=== PATIENT | female | born 1995 | race American Indian/Alaskan Native ===

== ENCOUNTER 2017-09-24 07:09 | Emergency (ER) | payer SELFPAY ==
--- NOTE | 2017-09-24 10:45 | Emergency Department Report ---
ED ENT HPI - General Chief complaint: Sore Throat Stated complaint: SORE THROAT Time Seen by Provider: 09/24/17 10:29 Source: patient Mode of arrival: Ambulatory Limitations: No Limitations - History of Present Illness MD complaint: sore throat -: days(s) ( 3days) Severity: moderate Severity scale (0 -10): 4 - Related Data Allergies Allergy/AdvReac Type Severity Reaction Status Date / Time No Known Allergies Allergy Unverified 09/24/17 07:22 ED Dental HPI - General Chief complaint: Sore Throat Stated complaint: SORE THROAT Time Seen by Provider: 09/24/17 10:29 Source: patient Mode of arrival: Ambulatory Limitations: No Limitations - Related Data Allergies Allergy/AdvReac Type Severity Reaction Status Date / Time No Known Allergies Allergy Unverified 09/24/17 07:22 ED Review of Systems ROS: Stated complaint: SORE THROAT Other details as noted in HPI Comment: All other systems reviewed and negative Constitutional: fever. denies: chills Respiratory: denies: cough, orthopnea, shortness of breath, SOB with exertion Cardiovascular: denies: chest pain, palpitations Gastrointestinal: denies: abdominal pain, nausea ED Past Medical Hx - Past Medical History Previous Medical History?: Yes Additional medical history: hx of heart murmur, p[olycystic ovaries - Surgical History Past Surgical History?: Yes Additional Surgical History: D&C - Social History Smoking Status: Current Every Day Smoker Substance Use Type: Non Opiate Pain ED Physical Exam - General Limitations: No Limitations General appearance: alert, in no apparent distress - Head Head exam: Present: atraumatic, normocephalic - Eye Eye exam: Present: normal appearance - ENT ENT exam: Present: other (pharyngeal erythema and tonsillar exudates present.) - Neck Neck exam: Present: normal inspection, full ROM. Absent: tenderness, meningismus, lymphadenopathy, thyromegaly - Respiratory Respiratory exam: Present: normal lung sounds bilaterally. Absent: respiratory distress, wheezes, rales, rhonchi, stridor, chest wall tenderness, accessory muscle use, decreased breath sounds, prolonged expiratory - Cardiovascular Cardiovascular Exam: Present: regular rate, normal rhythm, normal heart sounds - GI/Abdominal GI/Abdominal exam: Present: soft. Absent: tenderness, guarding, rebound - Extremities Exam Extremities exam: Present: normal inspection, full ROM - Back Exam Back exam: Present: normal inspection, full ROM. Absent: CVA tenderness (R), CVA tenderness (L) - Neurological Exam Neurological exam: Present: alert, oriented X3, CN II-XII intact, normal gait - Skin Skin exam: Present: warm, intact, normal color. Absent: cyanosis, diaphoretic, erythema ED Course Vital Signs 09/24/17 07:22 Temperature 98.5 F Pulse Rate 91 H Respiratory 20 Rate Blood Pressure 135/71 O2 Sat by Pulse 99 Oximetry Critical care attestation.: If time is entered above; I have spent that time in minutes in the direct care of this critically ill patient, excluding procedure time. ED Disposition Clinical Impression: Pharyngitis Disposition: -01 TO HOME OR SELFCARE Is pt being admited?: No Condition: Stable Instructions: Strep Throat (ED), Pharyngitis (ED) Referrals: PRIMARY CARE, [Primary Care Provider] - 3-5 Days
[2017-09-24 11:42] VITALS: BP 130/72
== END 2017-09-24 11:40 | disposition home or self-care (01) ==
LOC: ED 07:09
DX: J02.9 Acute pharyngitis, unspecified (principal); F17.200 Nicotine dependence, unspecified, uncomplicated; E28.2 Polycystic ovarian syndrome
CPT/HCPCS: 87116; 87430; 99282

== ENCOUNTER 2021-04-02 07:52 | Emergency (ER) | payer SELFPAY ==
[2021-04-02 08:14] VITALS: BP 109/71
--- NOTE | 2021-04-02 10:56 | Emergency Department Report ---
ED Female HPI - General Chief complaint: Urogenital-Female Stated complaint: SWOLLEN IN PRIVATE AREA Time Seen by Provider: 04/02/21 10:52 Source: patient Mode of arrival: Ambulatory Limitations: No Limitations - History of Present Illness Initial comments: Patient is a 25-year-old female presents emergency room with complaints of vaginal swelling for a week. she has associated itching and burning. She states that she is concerned she may have a yeast infection but has not tried any treatments. She states that she also noticed a small lesion present. Patient states that she was sexually active a week ago. No diarrhea, abdominal pain, pelvic pain, back pain. PMHx PCOS and states that she has not had a menstrual cycle in 6 years. No allergies to medicine. pt states she is concerned for STDs and would like to be treated. - Related Data Previous Rx's Medication Instructions Recorded Last Taken Type Amoxicillin [Amoxicillin TAB] 875 mg PO BID #20 tablet 09/24/17 Unknown Rx Doxycycline Hyclate [Doxycycline 100 mg PO BID 7 Days #14 tab 04/02/21 Unknown Rx Hyclate TAB] Fluconazole [Diflucan TAB] 150 mg PO QDAY 2 Days #6 tablet 04/02/21 Unknown Rx metroNIDAZOLE [Flagyl] 500 mg PO BID 7 Days #14 tab 04/02/21 Unknown Rx Allergies Allergy/AdvReac Type Severity Reaction Status Date / Time No Known Allergies Allergy Unverified 09/24/17 07:22 ED Review of Systems ROS: Stated complaint: SWOLLEN IN PRIVATE AREA Other details as noted in HPI Comment: All other systems reviewed and negative ED Past Medical Hx - Past Medical History Previous Medical History?: Yes Hx Asthma: Yes Additional medical history: hx of heart murmur, p[olycystic ovaries - Surgical History Past Surgical History?: Yes Additional Surgical History: D&C - Social History Smoking Status: Current Every Day Smoker Substance Use Type: Non Opiate Pain - Medications Home Medications: Home Medications Medication Instructions Recorded Confirmed Last Taken Type Amoxicillin [Amoxicillin TAB] 875 mg PO BID #20 tablet 09/24/17 Unknown Rx Doxycycline Hyclate [Doxycycline 100 mg PO BID 7 Days #14 tab 04/02/21 Unknown Rx Hyclate TAB] Fluconazole [Diflucan TAB] 150 mg PO QDAY 2 Days #6 tablet 04/02/21 Unknown Rx metroNIDAZOLE [Flagyl] 500 mg PO BID 7 Days #14 tab 04/02/21 Unknown Rx ED Physical Exam - General Limitations: No Limitations General appearance: alert, in no apparent distress - Head Head exam: Present: atraumatic, normocephalic - Eye Eye exam: Present: normal appearance - ENT ENT exam: Present: mucous membranes moist - Respiratory Respiratory exam: Present: normal lung sounds bilaterally. Absent: respiratory distress, wheezes, rales, rhonchi, stridor, chest wall tenderness, accessory muscle use, decreased breath sounds, prolonged expiratory - Cardiovascular Cardiovascular Exam: Present: regular rate, normal rhythm, normal heart sounds. Absent: systolic murmur, diastolic murmur, rubs, gallop - GI/Abdominal GI/Abdominal exam: Present: soft, normal bowel sounds. Absent: distended, tenderness, guarding, rebound, rigid - External exam: Present: other (chemical treatment operator: Kelley Whitley PA-C, no obvious edema present to the labia or external vaginal canal, no signs of bartholins cyst, there is a small 1 cm shallow ulceration present to the left lower labia, no blistering, there is white vaginal discharge present at the vaginal introitus) - Neurological Exam Neurological exam: Present: alert, oriented X3 - Psychiatric Psychiatric exam: Present: normal affect, normal mood - Skin Skin exam: Present: warm, dry, intact ED Course Vital Signs 04/02/21 08:12 Temperature 98.1 F Pulse Rate 77 Respiratory 18 Rate Blood Pressure 109/71 [Right] O2 Sat by Pulse 100 Oximetry ED Medical Decision Making - Medical Decision Making Patient is a 25-year-old female presents emergency room with complaints of vaginal swelling for a week. she has associated itching and burning. She states that she is concerned she may have a yeast infection but has not tried any treatments. She states that she also noticed a small lesion present. Patient states that she was sexually active a week ago. No diarrhea, abdominal pain, pelvic pain, back pain. PMHx PCOS and states that she has not had a menstrual cycle in 6 years. No allergies to medicine. pt states she is concerned for STDs and would like to be treated. vitals are normal. on exam: chemical treatment operator: Kelley Whitley PA-C, no obvious edema present to the labia or external vaginal canal, no signs of bartholins cyst, there is a small 1 cm shallow ulceration present to the left lower labia, no blistering, there is white vaginal discharge present at the vaginal introitus. Patient is not having any clinical signs of PID, no abdominal pain, no pelvic pain, no fever, no vomiting, no urinary symptoms. difficult to say if this is herpes virus lesion, there is only one small ulceration, no blistering, will have pt follow up o utpatient for full STD panel. Given that patient is concerned for STDs, will cover patient with medications. Patient given ceftriaxone IM while in the emergency department. Patient given prescription for medications. Advised patient Please take medication as prescribed. Please take the antibiotics with food and be sure to complete antibiotics. Please follow-up with the health department or clinic in order to receive a full STD including herpes. please follow up with an [employer]. Please have any partner tested and treated as well. Avoid sexual intercourse. Return to emergency room for any new or worsening symptoms. Critical care attestation.: If time is entered above; I have spent that time in minutes in the direct care of this critically ill patient, excluding procedure time. ED Disposition Clinical Impression: Vaginal ulceration, Concern about STD in female without diagnosis Vaginitis Qualifiers: Chronicity: acute Qualified Code(s): N76.0 - Acute vaginitis Disposition: - TO HOME OR SELFCARE Is pt being admited?: No Does the pt Need Aspirin: No Condition: Stable Instructions: Vaginitis, [id number], Safe Sex Additional Instructions: Please take medication as prescribed. Please take the antibiotics with food and be sure to complete antibiotics. Please follow-up with the health department or clinic in order to receive a full STD including herpes. please follow up with an [employer]. Please have any partner tested and treated as well. Avoid sexual intercourse. Return to emergency room for any new or worsening symptoms. [facility] service in [place], [place] Address: [address] [place] [address] [facility] STD testing service in [place], [place] Located in: [facility] Address: [address] [place] [address] Prescriptions: Fluconazole [Diflucan TAB] 150 mg PO QDAY 2 Days #6 tablet Doxycycline Hyclate [Doxycycline Hyclate TAB] 100 mg PO BID 7 Days #14 tab metroNIDAZOLE [Flagyl] 500 mg PO BID 7 Days #14 tab Referrals: [facility] [Outside] - 3-5 Days [facility] [Provider Group] - 3-5 Days GERALDO NUNEZ MD [Staff Physician] - 3-5 Days Time of Disposition: 10:57 Print Language: CHINESE
[2021-04-02] MEDS ORDERED: LIDOCAINE-MPF (1%) 10 MG/1 ML VIAL 5 ML INFILTRATI ONE (11:01)
== END 2021-04-02 12:13 | disposition home or self-care (01) ==
LOC: ED 07:52
DX: N76.0 Acute vaginitis (principal); N76.6 Ulceration of vulva; J45.909 Unspecified asthma, uncomplicated; F17.200 Nicotine dependence, unspecified, uncomplicated
CPT/HCPCS: 96372; 99282; J0696